=== PATIENT | female | born 1985 | race Caucasian/White ===

== ENCOUNTER 2016-10-17 13:35 | Emergency (ER) | payer OTHER ==
[2016-10-17 15:18] LABS: BASOPHIL % 0.5 % (0-2); RED CELL DISTRIBUTION WIDTH 13.9 % (11.5-14.5)
[2016-10-17 15:19] LABS: CALCIUM 8.9 mg/dL (8.5-10.1); CARBON DIOXIDE 27.3 mmol/L (21-32); CHLORIDE SERUM 106 mmol/L (98-107); CREATININE SERUM 0.8 mg/dL (0.6-1.0); GFR1 > 60 mL/min; GLUCOSE SERUM 113 mg/dL (74-106); POTASSIUM SERUM 4.3 mmol/L (3.5-5.1); SODIUM SERUM 145 mmol/L (136-145)
[2016-10-17 15:25] LABS: ALKALINE PHOSPHATASE 61 U/L (46-116); ALT/SGPT 24 U/L (14-59); AST/SGOT 24 U/L (15-37); BILIRUBIN TOTAL 0.3 mg/dL (0.20-1.00); TOTAL PROTEIN, SERUM 6.9 g/dL (6.4-8.2)
[2016-10-17 15:31] LABS: ALBUMIN 3.2 g/dL (3.4-5.0); PLATELET COUNT 506 x10^3mcL (130-400)
[2016-10-17 20:38] VITALS: BP 109/56
== END 2016-10-17 20:38 | disposition home or self-care (01) ==
LOC: ED 13:35
PROVIDERS: Emergency Medicine
DX: R41.82 Altered mental status, unspecified (principal); Z88.1 Allergy status to other antibiotic agents; Z88.2 Allergy status to sulfonamides
CPT/HCPCS: 80307; G0480; J0515; J1630; J2060

== ENCOUNTER 2016-10-17 23:59 | Emergency (ER) | payer OTHER ==
[~2016-10-17] VITALS: Ht 177.8 cm; Wt 60.3 kg
[2016-10-18 00:28] VITALS: BP 111/86
== END 2016-10-18 00:20 | disposition other institution (70) ==
LOC: ED 23:59
DX: Z02.89 Encounter for other administrative examinations (principal)